=== PATIENT | female | born 1995 | race Caucasian/White ===

== ENCOUNTER → 2017-03-11 | Outpatient (CLI) | payer OTHER | LOC: BMCIMAGING 12:57 | PROVIDERS: ATTEND Family Medicine | DX: S39.92XA Unspecified injury of lower back, initial encounter (principal); V18.0XXA Pedal cycle driver injured in noncollision transport accident in nontraffic accident, initial encounter; Y93.55 Activity, bike riding ==

== ENCOUNTER 2018-10-02 12:53 | Inpatient (IN) | payer BC ==
[2018-10-02] MEDS ORDERED: ACETAMINOPHEN 500 MG TAB PO ONE (13:30)
[2018-10-02] MEDS ORDERED: NS 1,000 ML IV ONE ×2 (13:30)
--- NOTE | 2018-10-02 13:30 | EDPHY ---
H & P Stated Complaint: dx uti last week/ abx resistant /now with kidney pain fever chills Time Seen by Provider: 10/02/18 13:30 HPI/ROS: HPI CHIEF COMPLAINT: Urinary tract infection, low back pain, fever HISTORY OF PRESENT ILLNESS: Patient is a 23-year-old female she arrives to the emergency room with low back pain, fever, not feeling well. She states on Monday of last week she was recently diagnosed with a urinary tract infection. She was placed on antibiotics but does not remember the name of them. She endorses nausea vomiting, fever 39 degrees at home. Low back pain. Past Medical History: Denies significant medical history Past Surgical History: Denies significant surgical history Social History: Denies drugs alcohol tobacco Family History: Noncontributory ROS REVIEW OF SYSTEMS: 10 Systems were reviewed and negative with the exception of the elements mentioned in the history of present illness. Exam Constitutional triage nursing summary reviewed, vital signs reviewed, awake/ alert. Tachycardic and febrile here. Eyes normal conjunctivae and sclera, EOMI, PERRLA. HENT normal inspection, atraumatic, moist mucus membranes, no epistaxis, neck supple/ no meningismus, no raccoon eyes. Respiratory clear to auscultation bilaterally, normal breath sounds, no respiratory distress, no wheezing. Cardiovascular tachycardic, regular rhythm, no murmur, no edema, distal pulses normal. Gastrointestinal soft, non-tender, no rebound, no guarding, normal bowel sounds, no distension, no pulsatile mass. Genitourinary no CVA tenderness. Musculoskeletal no midline vertebral tenderness, full range of motion, no calf swelling, no tenderness of extremities, no meningismus, good pulses, neurovascularly intact. Skin pink, warm, & dry, no rash, skin atraumatic. Neurologic awake, alert and oriented x 3, AAOx3, moves all 4 extremities equally, motor intact, sensory intact, CN II-XII intact, normal cerebellar, normal vision, normal speech. Psychiatric normal mood/affect. Heme/Lymph/Immune no lymphadenopathy. Differential Diagnosis: Includes but is not limited to in a particular order UTI, cystitis, pyelonephritis, sepsis, bacteremia Medical Decision Making: Plan for this patient she is febrile, tachycardic, IV fluid bolus will be given, check lactic acid, blood cultures, urine culture, Tylenol for fever control, and re-evaluate. Re-evaluation: Plan for this patient patient need to be admitted for urinary tract infection, pyelonephritis given her fever, tachycardia, low back pain. Blood cultures have been pulled Lactic acid. IV Rocephin has been given I have consult the hospitalist service Dr. Gastelum, agrees to admit. Source: Patient - Personal History LMP (Females 10-55): 8-14 Days Ago Current Tetanus Diphtheria and Acellular Pertussis (TDAP): Unsure - Medical/Surgical History Hx Asthma: No Hx Chronic Respiratory Disease: No Hx Diabetes: No Hx Cardiac Disease: No Hx Renal Disease: No Hx Cirrhosis: No Hx Alcoholism: No Hx HIV/AIDS: No Hx Splenectomy or Spleen Trauma: No Other PMH: denies - Social History Smoking Status: Never smoked Constitutional: Initial Vital Signs Temperature (C) 39.3 C H 10/02/18 13:07 Heart Rate 128 H 10/02/18 13:07 Respiratory Rate 18 10/02/18 13:07 Blood Pressure 133/82 H 10/02/18 13:07 O2 Sat (%) 97 10/02/18 13:07 O2 Delivery Mode Room Air Allergies/Adverse Reactions: cat dander Allergy (Verified 10/02/18 13:50) Home Medications: Medication Instructions Recorded Ibuprofen [Motrin (*)] 200 mg PO DAILY PRN 10/02/18 Norgestimate-Ethinyl Estradiol 1 each PO HS 10/02/18 [[id number]-Fsmgloqy Tablet] Sulfamethox/Tmp 800/160 mg 1 tab PO BID 10/02/18 [Bactrim Ds] diphenhydrAMINE [Benadryl 25 MG 25 mg PO HS PRN 10/02/18 (*)] Medical Decision Making - Data Points Laboratory Results: Laboratory Results 10/02/18 13:24 10/02/18 13:24 Medications Given: Hydrocodone Bitart/Acetaminophen ([place] 5/325) 1 - 2 tab PO Q4HRS PRN PRN Reason: Pain, Moderate Able to Take PO Stop: 10/12/18 14:54 Last Admin: 10/03/18 18:49 Dose: 2 tab Sodium Chloride (Ns) 1,000 mls @ 150 mls/hr IV CONT LAMAR Stop: 03/31/19 14:59 Last Admin: 10/03/18 19:25 Dose: 1,000 mls Ceftriaxone Sodium/Dextrose (Rocephin 1 Gm (Premix)) 50 mls @ 100 mls/hr IV DAILY LAMAR PRN Reason: Protocol Stop: 11/02/18 08:59 Last Admin: 10/03/18 08:27 Dose: 50 mls Miscellaneous Medication (Norgestimate-Ethinyl Estradiol [Ehk-Zj-Zzjstgtb Tablet ]) 1 each PO HS LAMAR Stop: 04/01/19 20:59 Last Admin: 10/03/18 20:35 Dose: Not Given Ondansetron HCl (Zofran) 4 mg IVP Q4HRS PRN PRN Reason: Nausea/Vomiting, Can't Take PO Stop: 03/31/19 14:54 Last Admin: 10/03/18 15:41 Dose: 4 mg Promethazine HCl (Phenergan) 6.25 mg IV Q6 PRN PRN Reason: Nausea/Vomiting, Can't Take PO Stop: 04/01/19 17:50 Last Admin: 10/03/18 17:58 Dose: 6.25 mg Senna/Docusate Sodium (Senokot-S) 1 - 2 tab PO BID LAMAR PRN Reason: Protocol Stop: 04/01/19 20:59 Last Admin: 10/03/18 20:31 Dose: Not Given Discontinued Medications Acetaminophen (Tylenol) 1,000 mg PO EDNOW ONE Stop: 10/02/18 13:31 Last Admin: 10/02/18 14:02 Dose: 1,000 mg Sodium Chloride (Ns) 1,000 mls @ 0 mls/hr IV EDNOW ONE; Wide Open PRN Reason: Protocol Stop: 10/02/18 13:31 Last Admin: 10/02/18 14:01 Dose: 1,000 mls Sodium Chloride (Ns) 1,000 mls @ 0 mls/hr IV EDNOW ONE; Wide Open PRN Reason: Protocol Stop: 10/02/18 13:31 Last Admin: 10/02/18 14:01 Dose: 1,000 mls Ceftriaxone Sodium 2 gm/ (Sodium Chloride) 50 mls @ 100 mls/hr IV EDNOW ONE PRN Reason: Protocol Stop: 10/02/18 14:04 Last Admin: 10/02/18 14:02 Dose: 50 mls Departure - Departure Disposition: [facility] Acute Clinical Impression: Pyelonephritis Urinary tract infection Qualifiers: Urinary tract infection type: acute pyelonephritis Qualified Code(s): N10 - Acute pyelonephritis Condition: Fair
[2018-10-02 13:41] LABS: PLATELET COUNT 332 10^3/uL (150-400)
[2018-10-02] MEDS ORDERED: cefTRIAXone 1 GM/DEXTROSE 1 GM/50 ML BAG IV ONE (13:57)
[2018-10-02 14:02] LABS: INR 1.09 (0.83-1.16); PROTIME(PATIENT) 13.7 SEC (12.0-15.0)
[2018-10-02] MEDS ORDERED: ONDANSETRON DISINTEGRATING 4 MG TAB PO PRN (14:55)
[2018-10-02] MEDS ORDERED: ACETAMINOPHEN 325 MG TAB PO PRN (14:55)
--- NOTE | 2018-10-02 15:21 | PDGENHP ---
History and Physical History and Physical: Chief complaint: Back pain History of present illness: The pt is a 23yo F who presented to the ED w/ worsening UTI symptomis including fevers, chills, back pain, dysuria, urinary urgency, and suprapubic pain. She started treatment for a UTI about 1 week ago, with Bactrim DS. However her symptoms have progressively worsened. Nothing seems to make her feel better or worse. She has not had these symptoms in the past. Past medical history: None. Past surgical history: None. Medications: Ibuprofen as needed for pain, TriLoSprintec, Bactrim DS, Benadryl as needed for allergies. Allergies: Cat dander. Social history: Nonsmoker. Family history: None- healthy. Review of systems: 10 point review of systems was conducted and is negative except per HPI Physical exam: Vitals: Reviewed General: The patient is a female who is A&Ox3 and in no acute distress. HEENT: normocephalic, extraocular movements intact, conjunctivae clear, no lesions on face or pinnae. Nares and oral mucosa pink and moist. Neck: trachea midline, no visible masses, no external lesions. Resp: unlabored breathing. Musculoskeletal: Normal muscle tone/bulk. Neuro: cranial nerves II - XII grossly intact. Intact gross motor and sensory function. Psych: appropriate mood/affect. Skin: No rash or ecchymoses or petechiae. Labs: WBC 21 hemoglobin 11.9 platelets 330 to INR 1.09 lactic acid 1.8 sodium 130 chloride 96 CO2 20 BUN 6 creatinine 0.8 glucose 121 calcium 8.6 beta HCG negative. Other Data: None. Impression and plan: Acute pyelonephritis Acute sepsis 2/2 above (SIRS fever, tachycardia) Acute dehydration Acute back pain, 2/2 above Hyponatremia, mild Anemia, mild -IV fluids, IV ceftriaxone. -prn analgesics. -Urine, blood Cx pending. -Check AM labs. -VTE ppx - ambulatory, low risk. -Code status - full. Observation status.
[2018-10-02] MEDS: NS 1,000 ML IV SCH ×2 (16:45→23:29)
[2018-10-02] MEDS: HYDROCODONE/APAP 5/325 TAB PO PRN ×3 (16:45→20:50)
[2018-10-03] MEDS: HYDROCODONE/APAP 5/325 TAB PO PRN ×4 (00:36→23:25)
[2018-10-03] MEDS: ONDANSETRON 4 MG/2 ML VIAL IVP PRN ×3 (04:52→15:41)
[2018-10-03] MEDS: NS 1,000 ML IV SCH ×2 (04:52→19:25)
[2018-10-03 08:48] LABS: PLATELET COUNT 290 10^3/uL (150-400)
--- NOTE | 2018-10-03 10:02 | ASMTCASEMG ---
Living Arrangements What is your living Answers: Alone arrangement? Who do you live with? Type Of Residence What kind of residence do Answers: Apartment you live in? Discharge Plan Comments Coordination Status Comments Notes: Patient is a 23yo single female who is being admitted OBS for acute pyelonephritis, acute sepsis, dehydration, acute back pain, hyponatremia and anemia. No therapies ordered. Patient will likely d/c independent. CM available for any d/c needs that arise. Date Signed: 10/03/2018 10:01 AM Electronically Signed By:Neelam Gaines LCSW
[2018-10-03] MEDS ORDERED: BISACODYL 10 MG SUPP PR PRN (11:08)
[2018-10-03] MEDS ORDERED: POLYETHYLENE GLYCOL 3350 17 GM PKT PO PRN (11:08)
[2018-10-03] MEDS ORDERED: MAGNESIUM HYDROXIDE 30 ML UDCUP PO PRN (11:08)
[2018-10-03] MEDS ORDERED: LACTULOSE 20 GM/30 ML UDCUP PO PRN (11:08)
[2018-10-03] MEDS ORDERED: NAPROXEN SODIUM 220 MG TAB PO PRN (11:10)
--- NOTE | 2018-10-03 14:28 | HOSPPROG ---
Hospitalist Progress Note Assessment/Plan: 23 year old female admitted with sepsis 2/2 pyelonephritis. Acute pyelonephritis- I reviewed the ultrasound which shows no hydro, or abscess. Urine consistent with infection. No urine culture obtained prior to abx. White count is trending down and responding to abx. -cont rocephin -obtain urine culture even though now likely low yield. -monitor blood cultures -saline Sepsis- initially meeting criteria with leukocytosis and tachycardia, source likely urinary. White count trending down and no longer tachycardic. Cont fluids and abx as above. Hyponatremia- hypovolemic hyponatremia. responded to IVNS. Anemia- normocytic anemia. no evidence of bleeding. monitor. Back pain- chronic pain from a "slipped disc". PRN analgesia -VTE ppx - ambulatory, low risk. -Code status - full. Inpatient for sepsis, pyelo. Subjective: feeling better today. still tired and with back pain, worse on left Objective: Vital Signs Temp Pulse Resp BP Pulse Ox 37.2 C 95 16 111/69 95 10/03/18 11:10 10/03/18 11:10 10/03/18 11:10 10/03/18 11:10 10/03/18 11:10 Laboratory Results 10/03/18 08:36 10/03/18 08:36 10/02/18 10/03/18 10/04/18 05:59 05:59 05:59 Intake Total 3289 1000 Output Total 400 350 Balance 2889 650 PT 13.7 SEC (12.0-15.0) 10/02/18 13:24 INR 1.09 (0.83-1.16) 10/02/18 13:24 - Physical Exam Constitutional: no apparent distress, appears nourished, not in pain Eyes: PERRL, anicteric sclera, EOMI Ears, Nose, Mouth, Throat: moist mucous membranes, hearing normal, ears appear normal, no oral mucosal ulcers Cardiovascular: regular rate and rhythym, no murmur, rub, or gallop Respiratory: no respiratory distress, no rales or rhonchi, clear to auscultation Gastrointestinal: normoactive bowel sounds, soft, non-tender abdomen, no palpable masses Genitourinary: no bladder fullness, no bladder tenderness, no renal bruits Skin: no rashes or abrasions, no fluctuance, no induration Musculoskeletal: full muscle strength, no muscle tenderness, normal joint ROM Neurologic: AAOx3, sensation intact bilaterally Psychiatric: interacting appropriately, not anxious, not encephalopathic, thought process linear Lymph, Heme, Immunologic: no cervical LAD, no supraclavicular LAD ICD10 Worksheet Patient Problems: Problems Problem Status Onset Pyelonephritis Acute Urinary tract infection Acute
[2018-10-03] MEDS ORDERED: PROMETHAZINE HCL 25 MG/ML INJ IV PRN (17:51)
[2018-10-03] MEDS: SENNOSIDES/DOCUSATE SODIUM TAB PO SCH (20:31)
[2018-10-03] MEDS: NORGESTIMATE ETHINYL ESTRADIOL PO SCH ×2 (20:35→23:54)
[2018-10-04] MEDS ORDERED: CALCIUM CARBONATE 500 MG CHEWABLE TAB PO PRN (00:48)
[2018-10-04] MEDS: NS 1,000 ML IV SCH ×2 (02:31→08:44)
[2018-10-04] MEDS: ONDANSETRON 4 MG/2 ML VIAL IVP PRN ×2 (06:27→19:55)
[2018-10-04] MEDS: SENNOSIDES/DOCUSATE SODIUM TAB PO SCH ×2 (08:43→23:36)
[2018-10-04] MEDS ORDERED: KETOROLAC 30 MG/1 ML SDV IVP ONE (09:34)
[2018-10-04 10:12] LABS: PLATELET COUNT 329 10^3/uL (150-400)
[2018-10-04] MEDS: KETOROLAC 30 MG/1 ML SDV IVP PRN ×2 (15:31→22:39)
--- NOTE | 2018-10-04 16:03 | HOSPPROG ---
Hospitalist Progress Note Assessment/Plan: 23 year old female admitted with sepsis 2/2 pyelonephritis. Acute pyelonephritis- I reviewed the ultrasound which shows no hydro, or abscess. Urine consistent with infection. No urine culture obtained prior to abx. White count is trending down and responding to abx. -cont rocephin -follow up culture of urine -monitor blood cultures -saline Sepsis- initially meeting criteria with leukocytosis and tachycardia, source likely urinary. White count trending down and no longer tachycardic. Cont fluids and abx as above. Hyponatremia- hypovolemic hyponatremia. responded to IVNS. Anemia- normocytic anemia. no evidence of bleeding. monitor. Back pain- chronic pain from a "slipped disc". PRN analgesia -VTE ppx - ambulatory, low risk. -Code status - full. Inpatient for sepsis, pyelo. Subjective: has a headache. no longer with any nausea. toradol helping. Objective: Vital Signs Temp Pulse Resp BP Pulse Ox 37.0 C 86 16 120/79 93 10/04/18 15:19 10/04/18 15:19 10/04/18 15:19 10/04/18 15:19 10/04/18 15:19 Microbiology 10/02/18 16:25 Urine Culture - Final Urine,Clean Catch One [place] Type Laboratory Results 10/04/18 10:03 10/04/18 10:03 10/03/18 10/04/18 10/05/18 05:59 05:59 05:59 Intake Total 3289 2100 Output Total 400 350 Balance 2889 1750 PT 13.7 SEC (12.0-15.0) 10/02/18 13:24 INR 1.09 (0.83-1.16) 10/02/18 13:24 - Physical Exam Constitutional: no apparent distress, appears nourished, not in pain Eyes: PERRL, anicteric sclera, EOMI Ears, Nose, Mouth, Throat: moist mucous membranes, hearing normal, ears appear normal, no oral mucosal ulcers Cardiovascular: regular rate and rhythym, no murmur, rub, or gallop Respiratory: no respiratory distress, no rales or rhonchi, clear to auscultation Gastrointestinal: normoactive bowel sounds, soft, non-tender abdomen, no palpable masses Genitourinary: no bladder fullness, no bladder tenderness, no renal bruits Skin: no rashes or abrasions, no fluctuance, no induration Musculoskeletal: full muscle strength, no muscle tenderness, normal joint ROM Neurologic: AAOx3, sensation intact bilaterally Psychiatric: interacting appropriately, not anxious, not encephalopathic, thought process linear Lymph, Heme, Immunologic: no cervical LAD, no supraclavicular LAD ICD10 Worksheet Patient Problems: Problems Problem Status Onset Pyelonephritis Acute Urinary tract infection Acute
--- NOTE | 2018-10-04 17:03 | PDMN ---
Medical Necessity Medical necessity: Change to inpt as of 10/04/18 @ 16:45, meets inpt criteria per MD order and MCG M-300, Urinary Tract Infection, acute pyelonephritis, acute sepsis, acute dehydration, and acute back pain 2/2 above upon admission. Upgraded to inpt for further med nec tx for pyelonephritis including IV ABX's and IVF, pain management: IV Toradol in addition to PO pain meds. Est LOS>2MN for ongoing management of above.
[2018-10-04] MEDS: OXYCODONE/APAP 5/325 TAB PO PRN ×2 (20:35→21:20)
[2018-10-04] MEDS ORDERED: LIDOCAINE 1% 300 MG/30 ML SDV ONE (21:49)
[2018-10-04] MEDS ORDERED: IOPAMIDOL (ISOVUE-370) 150 ML BTL IV ONE (21:49)
[2018-10-04] MEDS ORDERED: IOPAMIDOL (ISOVUE-M 300) 15 ML VIAL ONE (21:59)
--- NOTE | 2018-10-04 22:09 | HOSPPROG ---
Hospitalist Progress Note Assessment/Plan: Received notification from nighttime nurse patient has continued headaches for the past couple of days with photosensitivity and headache described as searing headache. I went to bedside to evaluate the patient; she reports her headache worsen after lunch time. She describes it mostly right-sided starting at her temporal and running down the back of her neck with radiation to her right shoulder described as if someone was stabbing her. She typically does not get headaches. She is currently using hot packs instead of cold packs as she states that cold packs worsen her headache. + nuchal rigidity, negative Kernig or Brudzinski's sign. Will get a head CT without IV contrast to rule out any intracranial process, will continue to give her Toradol for her headache. Tomorrow morning if her condition is the same or worsened, would recommend getting an LP to rule out meningitis. 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 I relayed this information to nighttime nurse. Objective: Vital Signs Temp Pulse Resp BP Pulse Ox 37.3 C 88 16 134/75 H 95 10/04/18 19:46 10/04/18 19:46 10/04/18 19:46 10/04/18 19:46 10/04/18 19:46 10/03/18 10/04/18 10/05/18 05:59 05:59 05:59 Intake Total 2500 Balance 2500 PT 13.7 SEC (12.0-15.0) 10/02/18 13:24 INR 1.09 (0.83-1.16) 10/02/18 13:24 ICD10 Worksheet Patient Problems: Problems Problem Status Onset Pyelonephritis Acute Urinary tract infection Acute
[2018-10-04] MEDS: NORGESTIMATE ETHINYL ESTRADIOL PO SCH (23:38)
[2018-10-05] MEDS ORDERED: diphenhydrAMINE 25 MG CAP PO PRN (00:44)
[2018-10-05] MEDS: HYDROCODONE/APAP 5/325 TAB PO PRN ×3 (00:56→18:28)
[2018-10-05] MEDS: SENNOSIDES/DOCUSATE SODIUM TAB PO SCH ×2 (08:36→20:47)
--- NOTE | 2018-10-05 09:45 | ASMTCMCOM ---
CM Note CM Note Notes: Attempted to see Pt but she is sleeping. Discussed Pt with RN and MD. CT scan done 10/04. Fely's FABIAN is better this morning but if symptom continues MD would consider an LP to r/o meningitis. CM available if needs arise. PLAN: Likely home independently once medically cleared Date Signed: 10/05/2018 09:45 AM Electronically Signed By:Siri Musa
[2018-10-05 12:59] LABS: INR 0.97 (0.83-1.16); PROTIME(PATIENT) 12.5 SEC (12.0-15.0)
[2018-10-05] MEDS ORDERED: LIDOCAINE 1% 300 MG/30 ML SDV ONE (13:45)
[2018-10-05] MEDS ORDERED: LORazepam 2 MG/ML INJ IVP ONE (14:04)
--- NOTE | 2018-10-05 14:35 | HOSPPROG ---
Hospitalist Progress Note Assessment/Plan: 23 year old female admitted with sepsis 2/2 pyelonephritis. Acute pyelonephritis- I reviewed the ultrasound which shows no hydro, or abscess. Urine consistent with infection. No urine culture obtained prior to abx. White count is trending down and responding to abx. -cont rocephin -follow up culture of urine -monitor blood cultures -saline intractable headache- with photophobia, NV, and pain at "the base of her skull" . concern for meningitis. I reviewed the CT of her head which shows no abnormality. -LP with opening pressure Sepsis- initially meeting criteria with leukocytosis and tachycardia, source likely urinary. White count trending down and no longer tachycardic. Cont fluids and abx as above. Hyponatremia- Resoled with saline. hypovolemic hyponatremia. Anemia- normocytic anemia. no evidence of bleeding. monitor. Back pain- chronic pain from a "slipped disc". PRN analgesia -VTE ppx - ambulatory, low risk. -Code status - full. Inpatient for sepsis, pyelo. rule out meningitis. Subjective: still with severe headache, Nausea, photophobia, neck stiffness. Objective: Vital Signs Temp Pulse Resp BP Pulse Ox 36.9 C 84 16 123/87 H 93 10/05/18 07:37 10/05/18 07:37 10/05/18 07:37 10/05/18 07:37 10/05/18 07:37 10/04/18 10/05/18 10/06/18 05:59 05:59 05:59 Intake Total 4000 Balance 4000 PT 12.5 SEC (12.0-15.0) 10/05/18 12:35 INR 0.97 (0.83-1.16) 10/05/18 12:35 - Physical Exam Constitutional: no apparent distress, obese, uncomfortable, unkempt Eyes: PERRL, anicteric sclera, EOMI Ears, Nose, Mouth, Throat: moist mucous membranes, hearing normal, ears appear normal, no oral mucosal ulcers Cardiovascular: regular rate and rhythym, no murmur, rub, or gallop Respiratory: no respiratory distress, no rales or rhonchi, clear to auscultation Gastrointestinal: normoactive bowel sounds, soft, non-tender abdomen, no palpable masses Genitourinary: no bladder fullness, no bladder tenderness, no renal bruits Skin: no rashes or abrasions, no fluctuance, no induration Musculoskeletal: full muscle strength, no muscle tenderness, normal joint ROM Neurologic: AAOx3, sensation intact bilaterally Psychiatric: interacting appropriately, not anxious, not encephalopathic, thought process linear Lymph, Heme, Immunologic: no cervical LAD, no supraclavicular LAD ICD10 Worksheet Patient Problems: Problems Problem Status Onset Pyelonephritis Acute Urinary tract infection Acute
[2018-10-05] MEDS ORDERED: ALBUTEROL 3 ML DEYVIAL IH PRN (20:40)
[2018-10-06] MEDS ORDERED: IPRATROPIUM/ALBUTEROL 3 ML DEYVIAL IH PRN
[2018-10-06] MEDS ORDERED: IPRATROPIUM/ALBUTEROL 3 ML DEYVIAL IH SCH
[2018-10-06] MEDS: NS 1,000 ML IV SCH (00:01)
[2018-10-06] MEDS: HYDROCODONE/APAP 5/325 TAB PO PRN (09:29)
[2018-10-06] MEDS: SENNOSIDES/DOCUSATE SODIUM TAB PO SCH ×2 (09:29→10:30)
[2018-10-06 09:37] VITALS: BP 134/76
--- NOTE | 2018-10-06 11:38 | ASMTLACE ---
EMORYE Length of stay for Answers: 2 days current admission Acuity / Level of Answers: Yes Care: Did the patient have an inpatient admission? # of Emergency department Answers: 1-2 visits in the last 6 months Score: 6 Date Signed: 10/06/2018 11:37 AM Electronically Signed By:CORDELIA Arellano
--- NOTE | 2018-10-06 11:42 | ASDISCHSUM ---
Discharge Information Plan Status:Home with No Needs Medically Cleared to Leave:10/06/2018 Discharge Date:10/06/2018 CM D/C Disposition:Home, Routine, Self-Care ADT D/C Disposition:Home, Routine, Self-Care Projected Discharge Date:10/06/2018 Transportation at D/C:Friend Discharge Delay Reason: Follow-Up Date:10/06/2018 Discharge Slot: Final Diagnosis: Placement Information Patient Contact Information Contact Name:TRINIDAD Relationship:Friend Address: Work Phone: City: [facility] Phone: State/[place] Media Code: Email: Financial Information Financial Class:BCOP Primary Plan Desc: OUT OF STATE [facility] Primary Plan Number:[id number] Secondary Plan Desc: Secondary Plan Number: Assessment Information LACE LACE Length of stay for Answers: 2 days current admission Acuity / Level of Answers: Yes Care: Did the patient have an inpatient admission? # of Emergency department Answers: 1-2 visits in the last 6 months Score: 6 Date Signed: 10/06/2018 11:37 AM Electronically Signed By:CORDELIA Arellano [facility] Initial CM Assessment Living Arrangements What is your living Answers: Alone arrangement? Who do you live with? Type Of Residence What kind of residence do Answers: Apartment you live in? Discharge Plan Comments Coordination Status Comments Notes: Patient is a 23yo single female who is being admitted OBS for acute pyelonephritis, acute sepsis, dehydration, acute back pain, hyponatremia and anemia. No therapies ordered. Patient will likely d/c independent. CM available for any d/c needs that arise. Date Signed: 10/03/2018 10:01 AM Electronically Signed By:Neelam Gaines LCSW [facility] CM Progress Note CM Note CM Note Notes: Attempted to see Pt but she is sleeping. Discussed Pt with RN and MD. CT scan done 10/04. Fely's FABIAN is better this morning but if symptom continues MD would consider an LP to r/o meningitis. CM available if needs arise. PLAN: Likely home independently once medically cleared Date Signed: 10/05/2018 09:45 AM Electronically Signed By:Siri Musa Intervention Information
[2018-10-06] MEDS: KETOROLAC 30 MG/1 ML SDV IVP PRN (12:04)
--- NOTE | 2018-10-06 16:37 | PDDCSUM ---
Discharge Summary Discharge Summary: Discharge diagnosis Sepsis Pyelonephritis Hyponatremia Headache Chronic pain The patient was admitted for sepsis that was likely due to pyelonephritis. She was started on antibiotics and responded quickly. An ultrasound revealed no renal abscess is or other abnormalities. She responded to fluids and antibiotics. She developed an intractable headache with photophobia nausea and neck stiffness. Eventually decision was made to obtain a lumbar puncture to rule out meningitis. The lumbar puncture was essentially normal with culture and Gram stain being negative and counts not consistent with bacterial or viral meningitis. The patient did admit to taking a large amount of NSAIDs prior to come into the hospital for her chronic back pain and it was thought that her headache may be due to analgesic rebound. Regardless, she was discharged home to complete a course of 7 days of antibiotics. Disposition Home independent New medications Cipro 500 mg twice daily to complete 7 day course I spent over 30 min on the discharge of this patient
== END 2018-10-06 12:41 | disposition home or self-care (01) | DRG 872 ==
LOC: F1N 15:21 → OBSVTOIN 10-04 16:45
PROVIDERS: ADMIT Internal Medicine; ATTEND Internal Medicine
PROC: 009U3ZX Drainage of Spinal Canal, Percutaneous Approach, Diagnostic (ICD-10-PCS; principal; 2018-10-05)
DX: A41.9 Sepsis, unspecified organism (principal); N10 Acute pyelonephritis; E87.1 Hypo-osmolality and hyponatremia; R51 Headache; G89.29 Other chronic pain; E86.0 Dehydration; D64.9 Anemia, unspecified
CPT/HCPCS: 96365; G0378; J0696; J1885; J2060; J2270; J2405; J2550; J7613; Q9967

== ENCOUNTER 2018-10-09 15:51 | Emergency (ER) | payer BC ==
[2018-10-09] MEDS ORDERED: DEXAMETHASONE 10 MG/ML VIAL IVP ONE (16:14)
[2018-10-09] MEDS ORDERED: NS 1,000 ML IV ONE (16:14)
[2018-10-09] MEDS ORDERED: METOCLOPRAMIDE 10 MG/2 ML VIAL IVP ONE (16:14)
--- NOTE | 2018-10-09 16:18 | EDPHY ---
H & P Stated Complaint: Recent hospitalization for kidney infection Time Seen by Provider: 10/09/18 16:00 HPI/ROS: CHIEF COMPLAINT: fatigue, headache HISTORY OF PRESENT ILLNESS: 23-year-old female presents with fatigue and headache. She was recently admitted for pyelonephritis. Urine culture revealed E coli, sensitive to Levaquin. She was placed on Cipro and completed the course of Cipro yesterday. During her admission, she had a persistent headache. Lumbar puncture was performed and was unremarkable. No change in headache after the lumbar puncture. Since discharge, she continues to have a moderate headache, 6/10, associated with nausea. No pain medications taken. No fever since discharge. REVIEW OF SYSTEMS: complete 10 point ROS reviewed and is negative except for the noted elements in the HPI Source: Patient - Personal History LMP (Females 10-55): 22-28 Days Ago Current Tetanus/Diphtheria Vaccine: No Current Tetanus Diphtheria and Acellular Pertussis (TDAP): No - Medical/Surgical History Hx Asthma: No Hx Chronic Respiratory Disease: No Hx Diabetes: No Hx Cardiac Disease: No Hx Renal Disease: No Hx Cirrhosis: No Hx Alcoholism: No Hx HIV/AIDS: No Hx Splenectomy or Spleen Trauma: No Other PMH: denies - Social History Smoking Status: Never smoked Alcohol Use: None Drug Use: None Additional Social History: [employer] student - Physical Exam Exam: General Appearance: Alert, pleasant, wearing sunglasses Eyes: Pupils equal and round, no conjunctival pallor or injection ENT, Mouth: Mucous membranes moist Neck: Normal inspection Respiratory: Lungs are clear to auscultation Cardiovascular: Regular rate and rhythm Gastrointestinal: Abdomen is soft and nontender Neurological: Alert, oriented x3, cranial nerves II through XII intact, motor 5 /5, sensory intact to light touch, normal gait Skin: Warm and dry Extremities: Nontender, no pedal edema Psychiatric: Mood and affect normal Constitutional: Initial Vital Signs Temperature (C) 36.8 C 10/09/18 15:58 Heart Rate 88 10/09/18 15:58 Respiratory Rate 16 10/09/18 15:58 Blood Pressure 143/78 H 10/09/18 15:58 O2 Sat (%) 98 10/09/18 15:58 O2 Delivery Mode Room Air Allergies/Adverse Reactions: cat dander Allergy (Verified 10/02/18 13:50) Home Medications: Medication Instructions Recorded Ibuprofen [Motrin (*)] 200 mg PO DAILY PRN 10/02/18 Norgestimate-Ethinyl Estradiol 1 each PO HS 10/02/18 [Ydo-Xq-Aqtkayor Tablet] diphenhydrAMINE [Benadryl 25 MG 25 mg PO HS PRN 10/02/18 (*)] Ciprofloxacin [Cipro] 500 mg PO BID 2 Days #4 tab 10/06/18 Medical Decision Making ED Course/Re-evaluation: This patient presents with a persistent headache after recent treatment for pyelonephritis. Lumbar puncture was unremarkable during the hospitalization and the FABIAN did not worsen after LP (doubt spinal FABIAN). IV normal saline, Reglan , Benadryl and Decadron IV given. Patient feels much better after IV medications and headache has almost completely resolved. No evidence persistent urinary tract infection, hyponatremia or other concerning etiology. Will discharge the patient home. Headache warning signs discussed. Differential Diagnosis: Headache including but not limited to subarachnoid hemorrhage, migraine headache , spinal headache, tension headache and infectious causes such as meningitis, pharyngitis and sinusitis. - Data Points Laboratory Results: Laboratory Results 10/09/18 17:13 10/09/18 16:40 10/09/18 10/09/18 10/09/18 17:13 16:40 16:06 WBC 9.80 10^3/uL H 10^3/uL (3.80-9.50) RBC 4.88 10^6/uL 10^6/uL (4.18-5.33) Hgb 13.3 g/dL g/dL (12.6-16.3) Hct 41.3 % % (38.0-47.0) MCV 84.6 fL fL (81.5-99.8) MCH 27.3 pg L pg (27.9-34.1) MCHC 32.2 g/dL L g/dL (32.4-36.7) RDW 13.0 % % (11.5-15.2) Plt Count 598 10^3/uL H 10^3/uL (150-400) MPV 8.8 fL fL (8.7-11.7) Neut % (Auto) 56.9 % % (39.3-74.2) Lymph % (Auto) 31.8 % % (15.0-45.0) [place] % (Auto) 8.0 % % (4.5-13.0) Eos % (Auto) 1.2 % % (0.6-7.6) Baso % (Auto) 0.6 % % (0.3-1.7) Nucleat RBC Rel Count 0.0 % % (0.0-0.2) Absolute Neuts (auto) 5.57 10^3/uL 10^3/uL (1.70-6.50) Absolute Lymphs (auto) 3.12 10^3/uL H 10^3/uL (1.00-3.00) Absolute Monos (auto) 0.78 10^3/uL 10^3/uL (0.30-0.80) Absolute Eos (auto) 0.12 10^3/uL 10^3/uL (0.03-0.40) Absolute Basos (auto) 0.06 10^3/uL 10^3/uL (0.02-0.10) Absolute Nucleated RBC 0.00 10^3/uL 10^3/uL (0-0.01) Immature Gran % 1.5 % H % (0.0-1.1) Immature Gran # 0.15 10^3/uL H 10^3/uL (0.00-0.10) Sodium 142 mEq/L mEq/L (135-145) Potassium 4.6 mEq/L mEq/L (3.5-5.2) Chloride 106 mEq/L mEq/L (97-110) Carbon Dioxide 17 mEq/l L mEq/l (22-31) Anion Gap 19 mEq/L H mEq/L (6-14) BUN 11 mg/dL mg/dL (7-23) Creatinine 0.6 mg/dL mg/dL (0.6-1.0) Estimated GFR > 60 Glucose 103 mg/dL H mg/dL (70-100) Calcium 9.8 mg/dL mg/dL (8.5-10.4) Urine Color YELLOW Urine Appearance CLEAR Urine pH 7.0 (5.0-7.5) Ur Specific [place] 1.013 (1.002-1.030) Urine Protein NEGATIVE (NEGATIVE) Urine Ketones NEGATIVE (NEGATIVE) Urine Blood NEGATIVE (NEGATIVE) Urine Nitrate NEGATIVE (NEGATIVE) Urine Bilirubin NEGATIVE (NEGATIVE) Urine Urobilinogen NEGATIVE EU EU (0.2-1.0) Ur Leukocyte Esterase NEGATIVE (NEGATIVE) Urine Glucose NEGATIVE (NEGATIVE) Medications Given: Discontinued Medications Dexamethasone (Decadron Injection) 10 mg IVP EDNOW ONE Stop: 10/09/18 16:15 Last Admin: 10/09/18 17:15 Dose: 10 mg Diphenhydramine HCl (Benadryl Injection) 25 mg IVP EDNOW ONE Stop: 10/09/18 16:15 Last Admin: 10/09/18 17:15 Dose: 25 mg Sodium Chloride (Ns) 1,000 mls @ 0 mls/hr IV ONCE ONE; Wide Open PRN Reason: Protocol Stop: 10/09/18 16:15 Last Admin: 10/09/18 17:15 Dose: 1,000 mls Metoclopramide HCl (Reglan Injection) 10 mg IVP EDNOW ONE Stop: 10/09/18 16:15 Last Admin: 10/09/18 17:15 Dose: 10 mg Departure - Departure Disposition: Home, Routine, Self-Care Clinical Impression: Headache Condition: Good Instructions: Acute Headache (ED) Referrals: Brennan Duff MD [Primary Care Provider] - As per Instructions
[2018-10-09 17:22] LABS: PLATELET COUNT 598 10^3/uL (150-400)
[2018-10-09 17:56] VITALS: BP 115/76
== END 2018-10-09 18:03 | disposition home or self-care (01) ==
DX: R51 Headache (principal); R53.83 Other fatigue; E86.9 Volume depletion, unspecified
CPT/HCPCS: 96374; J1100; J1200; J2765